=== PATIENT | female | born 1990 ===

== ENCOUNTER 2022-01-07 09:03 | Day surgery (SDC) | payer OTHER | END 2022-01-07 15:25 | disposition home or self-care (01) | LOC: CIR.AMB 09:03 | PROVIDERS: ATTEND Obstetrics & Gynecology | DX: N75.0 Cyst of Bartholin's gland (principal); Z86.16 Personal history of COVID-19; E03.9 Hypothyroidism, unspecified; Z20.822 Contact with and (suspected) exposure to COVID-19 ==